=== PATIENT | female | born 1955 | race Caucasian/White ===

== ENCOUNTER → 2021-06-16 | Day surgery (SDC) | payer BC, OTHER ==
[~2021-06-16] MED LIST: ALBU2.5V8 IH; AMLO-186 PO; CYCL10TA19 PO; IV RINGERS,LACTATED 1000ML 1,000 ML IV SCH; LIDOCAINE 2% PF 5 ML VIAL. ONE; PROPOFOL 10 MG/ML (20ML) VIAL. IV ONE
[2021-06-16 08:42] VITALS: BP 182/98
--- NOTE | 2021-06-16 09:01 | PDOC2 ---
CONSULT Date of Consult Date of Consult DATE: 06/16/21 TIME: 08:55 Reason for Consult Reason for Consult: + cologuard Identification/Chief Complaint Chief Complaint 66 yo Female is seen with + cologuard. She has formed stools daily. Family history is negative for colon cancer but positive for colon polyps. No melena and/or hematochezia is noted. Weight and appetite are stable. She otherwise is without additional complaints. Past Medical History Cardiovascular: HTN Pulmonary: Asthma Past Surgical History Past Surgical History: No pertinent history Family History Family History: Cancer (breast sister colon polyps sister) Social History Quit ALCOHOL: none Current Medications Current Medications Current Medications Ringer's Solution 1,000 ml @ 100 mls/hr Q10H IV ; Start 06/16/21 at 08:45; Stop 06/17/21 at 08:44 Active Scripts Active Reported Cyclobenzaprine Hcl 10 Mg Tablet 10 Mg PO TID Amlodipine Besylate 5 Mg Tablet 5 Mg PO DAILY Proair Hfa (Albuterol Sulfate) 8.5 Gm Hfa.aer.ad 2 Puff IH PRN Q4-6HRS PRN 21 Days Allergies Allergies: Coded Allergies: No Known Drug Allergies (Unverified , 06/16/21) ROS Respiratory: YES: Cough Physical Exam Lungs: Clear to auscultation Heart: Regular rate, Normal S1, Normal S2 Abdomen: Normal bowel sounds, Soft, No tenderness Vitals VITALS Vital Signs Date Time Temp Pulse Resp B/P (MAP) Pulse Ox O2 Delivery O2 Flow Rate FiO2 06/16/21 08:42 98.0 110 22 92 98.0 Assessment/Plan Assessment/Plan + cologuard - colonoscopy to further assess is recommended. R/B discussed with patient who is willing to proceed. Differential includes: polyps, colon cancer, and/or false positive. ARTI JARAMILLO MD Jun 16, 2021 09:01
[2021-06-16 09:55] VITALS: BP 129/68
--- NOTE | 2021-06-19 16:16 | PATHOLOGY ---
[facility] Accession Number: [id number] . 01 Material submitted: . sigmoid colon - SIGMOID POLYPS . 01 Clinical history: . + COLOGUARD COLONOSCOPY POLYPS . 02 Diagnosis: Colon biopsies, sigmoid polyps: - Tubular adenoma (1). - Hyperplastic polyp (1). ([facility]; 06/19/2021) [facility] 06/19/2021 0941 Local . 02 Comment: There is no high-grade dysplasia or evidence of malignancy. ([facility]; 06/19/2021) . 02 Electronically signed: . José Miguel Diaz MD, Pathologist NPI- [id number] . 01 Gross description: . The specimen is received in formalin, labeled "Yeimy Rdz, sigmoid polyps". Received are 2, landry-pink, soft tissue fragments, measuring 0.4 and 0.7 cm, in greatest dimension. The largest fragment is bisected. The specimen is entirely submitted in cassette A1. ([facility]; 06/16/2021) J/[facility] 06/16/2021 1745 Local . 02 Pathologist provided ICD-10: D12.5, K63.5 . 02 CPT . 670036 Specimen Comment: A courtesy copy of this report has been sent to [phone], [phone] Specimen Comment: [id number] Specimen Comment: Report sent to / DR VIDALES Specimen Comment: A duplicate report has been generated due to demographic updates. Performed at: 01 [facility] [address], [place], [place] [id number] MD Khoa Orozco MD Phone: [phone] Performed at: 02 [facility] [address], [place] [id number] MD José Miguel Diaz MD Phone: [phone]
== END | disposition home or self-care (01) ==
LOC: ENDOS 08:26
PROVIDERS: ATTEND Internal Medicine Gastroenterology
DX: R19.5 Other fecal abnormalities (principal); K64.0 First degree hemorrhoids; K57.30 Diverticulosis of large intestine without perforation or abscess without bleeding; K63.89 Other specified diseases of intestine; D12.5 Benign neoplasm of sigmoid colon; I10 Essential (primary) hypertension; J44.9 Chronic obstructive pulmonary disease, unspecified; Z79.899 Other long term (current) drug therapy; Z87.891 Personal history of nicotine dependence; Z98.890 Other specified postprocedural states
CPT/HCPCS: 45385; J2704; 45380; 88305